=== PATIENT | male | born 1995 | race Caucasian/White ===

== ENCOUNTER 2019-08-06 03:50 | Emergency (ER) | payer SELFPAY ==
[2019-08-06 03:51] VITALS: BP 143/130; PULSE 159; RESP 25; TEMP 30.4; O2SAT 92; BMI 19.0
--- NOTE | 2019-08-06 03:54 | EKG12_ITS ---
Test Reason : RHYTHM CHANGE Blood Pressure : / mmHG Vent. Rate : 084 BPM Atrial Rate : 084 BPM P-R Int : 164 ms QRS Dur : 096 ms QT Int : 382 ms P-R-T Axes : 073 090 060 degrees QTc Int : 451 ms Normal sinus rhythm Rightward axis Borderline ECG Confirmed by BRITNEY WHITTINGTON, BERTIN ([id number]), art editor LONNY ESTRADA ([id number] on 08/10/2019 9:42:27 AM Referred By: NALLELY Confirmed By:XIOMY TAN MD
--- NOTE | 2019-08-06 03:55 | ED.DCSUM_ITS ---
History of Present Illness Chief Complaint: Overdose Informant: Patient, Friend, News Librarian Onset: Today Context: Sudden Onset Timing: Intermittent Quality: Respiratory arrest Current Severity: Mild Maximum Severity: Severe Worsened by: Snorted heroin Relieved by: Improved after intranasal and IV Narcan Associated Symptoms: Chills Narrative: Patient is a 23-year-old male who admits he has used heroin for some time. He recently resumed using heroin after he was in rehab. He denies history of hepatitis or HIV. Patient complains of chills. His clothes are wet. He requires repeat verbal and tactile stimulus to open his eyes and talk. History is limited. Prior similar symptoms: No Recent Illness/Hospitalization: No - Past Medical History (1) History of heroin use Status: Acute Past Medical History - Allergies and Home Meds Allergies/Adverse Reactions: Allergies No Known Allergies Allergy (Verified 08/06/19 03:59) Primary Care Physician: NOT,DEFINED [NON-STAFF] - Surgical History: no surgical history Lives: With Family - He lives with his mother Smoking Status: Current every day smoker Drugs: Heroin Review of Systems ROS: Unable to Obtain - Admitted secondary to drowsiness General: Reports: Chills. Denies: Fever, Malaise, Sweats Eyes: Denies: Visual changes - bilaterally, Blurred Vision - bilaterally ENT: Denies: Bilateral ear pain, Rhinorrhea, Sore throat Cardiovascular: Denies: Chest pain, Palpitations Respiratory: Denies: Dyspnea, Cough, Dyspnea on exertion Gastrointestinal: Reports: Nausea. Denies: Abdominal pain, Vomiting, Diarrhea, Melena Genitourinary: Denies: Dysuria, Hematuria Musculoskeletal: Reports: Myalgias. Denies: Arthralgias, Neck pain, Back pain, Swelling, Extremity Pain Skin: Denies: Rash, Wounds Neurological: Reports: Numbness. Denies: Headache, Weakness Psych: Reports: Anxiety Hematologic: Denies: Easy bruising, Easy bleeding Allergy: Denies: Uticaria, Swelling of the mouth Physical Exam Inital Vital Signs reviewed: Yes General: Well developed, - - Been. Patient is visibly shaking and has depressed level of consciousness Head: Normocephalic, Atraumatic Eyes: EOMI, - - Toes are 2 mm in size and slightly reactive.. Negative for: Pale conjunctiva, Scleral icterus ENT: No rhinorrhea, TM's clear, Dry mucous membranes Neck: Supple, Nontender, No lymphadenopathy, No JVD Cardiovascular: Regular rhythm, No murmurs, Normal S1, Normal S2, Tachycardia Respiratory: No distress, CTA bilaterally, Chest nontender Abdomen: Soft, Nontender, Nondistended, Normal bowel sounds, No masses Rectal: Deferred Back: Nontender Extremities: Nontender, No edema. Negative for: Tenderness, Edema Skin: No rash, No Trauma, Pallor. Negative for: Cyanosis, Diaphoresis, Jaundice Neurological: Cranial nerves II-XII grossly intact, Normal Strength. Negative for: Alert, Normal Sensation Psychological: Depressed Diagnostic/Tx/Re-eval - EKG Initial EKG Interpretation: Atrial Fibrillation - Atrial fibrillation with a ventricular rate of 152. QRS duration 98 ms which is prolonged. QT interval is 304 ms. There is no ossific ST-T wave changes which may represent artifact since patient has chills. [place] is to the right. Follow-up EKG Interpretation: Sinus Rhythm - Normal sinus rhythm with a ventricular rate of 84. DE interval is 164 ms. QS duration 96 ms. QT duration 382 ms. The axis to the right. - Medical Decision Making Patient does not appear well. He is pale tachycardic. He is somnolent. Narcan drip was ordered from pharmacy. Will obtain blood work for metabolic infectious etiology. Since he is tachycardic will obtain EKG to evaluate for ischemic changes. Tox screen was ordered as well as alcohol. I was informed that his temperature is 86. A temperature probe Dominguez was placed for accurate core temperature. Since core temperature is 92 ?F. Bear hugger was ordered. Will await tox sc reen prior to treating his A. fib with RVR. This may represent holiday heart syndrome versus illicit drug use. Entry at 1650. Tox screen was negative for opiates which would suggest he snorted fentanyl. Tox screen was also negative for cocaine and amphetamines. We will treat his A. fib with RVR with beta-brandyn. I was informed that his father has significant heart disease. Should not converted to normal sinus rhythm without intervention. Nurse informed me that she had not given the metoprolol prior to him converting. Patient was informed he needs to follow-up at [facility] counseling and drug rehabilitation. Since patient is now in a sinus rhythm without intervention will refer to cardiology. - Critical Care Time Critical care time (excluding procedures): 30-74 minutes, Discussing w/Patient &/or Family/Outdoor Advertising Leasing Agent, Discussing w/Consultants, Arranging Admission or Transfer ED Disposition - Plan for ED Patient: Disposition: Home or Assisted Living Diagnosis: Paroxysmal atrial fibrillation with rapid ventricular response, Overdose of opiate or related narcotic, Acute respiratory failure Instructions: Opiate Abuse, Atrial Fibrillation Referrals: NOT,DEFINED [NON-STAFF] - [facility] [STAFF PHYSICIAN] - As soon as possible Cassie De Leon MD [STAFF PHYSICIAN] - 5-7 Days
[2019-08-06] MEDS: Ondansetron 4 MG/2 ML Vial IV (03:56)
[2019-08-06 03:59] VITALS: BP 174/140; PULSE 188; RESP 29; TEMP 33.2
[2019-08-06] MEDS: 0.9% Normal Saline 1,000 ML 150 ML IV (04:26)
[2019-08-06 04:31] LABS: Absolute Lymphocyte Count 2.94 X10^3/uL (0.83-4.51); Absolute Neutrophil Count 10.9 X10^3/uL (2.0-7.7); Basophil# 0.05 X10^3/uL; Basophil% 0.3 % (0-1); Eosinophil# 0.23 X10^3/uL; Eosinophils% 1.5 % (0-5); Hematocrit 47.3 % (40-54); Hemoglobin 15.7 g/dL (13.0-16.5); Lymphocyte # 2.94 X10^3/ul (4.0); Lymphocyte % 19.6 % (19-41); Mean Corp Hgb Conc 33.2 g/dL (32-36); Mean Corpuscular Hgb 30.1 pg (27.0-32.0); Mean Corpuscular Volume 90.6 fL (80-94); Mean Platelet Vol. 9.4 fl (6.2-12.0); Monocyte# 0.65 X10^3/uL; Monocyte% 4.3 % (0-10); NRBC Flagged by Analyzer 0 % (0-5); Neutrophil # 10.91 X10^3/uL (2.7-7.7); Neutrophil % 72.9 % (47-70); Platelet Count 223 K/mm3 (150-450); RBC Distribution Width CV 12.2 % (11.6-14.6); RBC Distribution Width SD 40.1 fl (35.1-43.9); Red Blood Count 5.22 M/mm3 (4.6-6.2)
[2019-08-06 04:47] VITALS: BP 101/65; PULSE 105; RESP 15; O2SAT 98
[2019-08-06 04:49] LABS: Amphetamine Urine VISTA NEGATIVE (<1000 ng/mL); Barbiturate Urine VISTA NEGATIVE (< 200 ng/mL); Benzodiazepine Urine VISTA POSITIVE (< 200 ng/mL); Cocaine Urine VISTA NEGATIVE (< 300 ng/mL); Ecstacy Urine VISTA NEGATIVE (< 500 ng/mL); Methadone Urine VISTA NEGATIVE (< 300 ng/mL); PCP Urine VISTA NEGATIVE (< 25 ng/mL); THC Urine VISTA POSITIVE (< 50 ng/mL); Vista UDS pH Range 6
[2019-08-06 04:57] LABS: AST(SGOT) 44 U/L (15-37); Alanine Aminotransfer ALT/SGPT 31 U/L (16-61); Albumin, Serum 3.8 g/dL (3.2-5.0); Alkaline Phosphatase 71 U/L (45-117); Anion Gap 16 (5-15); BUN 12 mg/dL (7-18); BUN/Creat Ratio 8.4 RATIO (10-20); Bilirubin, Direct 0.05 mg/dL (0.00-0.30); Calcium,Total 8.1 mg/dL (8.5-10.1); Chloride 105 mmol/L (98-107); Creatinine, Serum 1.43 mg/dL (0.70-1.30); EST Glomerular Filtration Rate 64 mL/min (>60); Est Glom Filt Rate - Afr Amer 77 mL/min (>60); Estimated Creatinine Clearance 70.93 ml/min; Globulin 3.9 g/dL (2.2-4.2); Glucose 291 mg/dL (74-106); Potassium 3.6 mmol/L (3.5-5.1); Protein, Total 7.7 g/dL (6.4-8.2); Sodium Level 137 mmol/L (136-145)
[2019-08-06 05:08] LABS: Alcohol, Blood (Medical)-Serum < 3.0 mg/dL
[2019-08-06 05:22] VITALS: BP 93/71; PULSE 85; RESP 18; O2SAT 97
--- NOTE | 2019-08-06 05:30 | EKG12_ITS ---
Test Reason : DYSRHYTHMIA Blood Pressure : / mmHG Vent. Rate : 152 BPM Atrial Rate : 170 BPM P-R Int : 000 ms QRS Dur : 098 ms QT Int : 304 ms P-R-T Axes : 000 092 033 degrees QTc Int : 483 ms Atrial fibrillation with rapid ventricular response Rightward axis Nonspecific ST abnormality Abnormal ECG Confirmed by BRITNEY WHITTINGTON, BERTIN ([id number]), editorial cartoonist LONNY ESTRADA ([id number]) on 08/10/2019 9:43:05 AM Referred By: NALLELY Confirmed By:XIOMY TAN MD
--- NOTE | 2019-08-06 05:43 | ED.RN ---
NARCAN DRIP NOT STARTED PT BECAME AWAKE AND ALERT. LOPRESSOR 5 MG IVP NOT GIVEN RHYTHM CONVERTED TO NSR, HR 82
[2019-08-06 06:05] VITALS: BP 99/54; PULSE 82; RESP 13; O2SAT 97
== END 2019-08-06 06:07 | disposition home or self-care (01) ==
PROVIDERS: Emergency Provider Emergency Medicine
DX: I48.0 Paroxysmal atrial fibrillation (principal); J96.00 Acute respiratory failure, unspecified whether with hypoxia or hypercapnia; R68.0 Hypothermia, not associated with low environmental temperature; R00.0 Tachycardia, unspecified; T40.601A Poisoning by unspecified narcotics, accidental (unintentional), initial encounter; Y92.9 Unspecified place or not applicable; F41.9 Anxiety disorder, unspecified; F17.200 Nicotine dependence, unspecified, uncomplicated
CPT/HCPCS: 51702; 80048; 80076; 80307; 80320; 85025; 93005; 96361; 96374; 99285; J7030; A4216; G0480; J2310; J2405

== ENCOUNTER 2019-08-31 23:01 | Emergency (ER) | payer OTHER, SELFPAY ==
[2019-08-31 23:02] VITALS: BP 158/96; PULSE 118; RESP 16; TEMP 36.6; O2SAT 96; BMI 18.3
[2019-08-31 23:10] VITALS: PULSE 108; RESP 6; O2SAT 83
[2019-08-31 23:12] VITALS: PULSE 123; RESP 14; O2SAT 92
[2019-08-31] MEDS: Naloxone 2 MG/2 ML Syringe NS (23:19)
--- NOTE | 2019-08-31 23:23 | ED.RN ---
pt more alert with narcan. pt can now talk in full sentences without falling asleep.
--- NOTE | 2019-08-31 23:24 | ED.VIS.GEN ---
History of Present Illness Chief Complaint: Overdose Informant: Patient Narrative: Presents status post fentanyl overdose. He stated this evening prior to coming in he snorted fentanyl. Brought in by his family. He has history of narcotic abuse in the past. He said this is a relapse and he normally does not use frequently. Denies any other symptoms other than being tired. Was recently seen for overdose and treated in the emergency department. He was in atrial fibrillation at that time as well. He denies any complaints - Past Medical History (1) History of heroin use Status: Acute Past Medical History - Allergies and Home Meds Allergies/Adverse Reactions: Allergies No Known Allergies Allergy (Verified 08/31/19 23:04) Primary Care Physician: Care Physician,No Primary [Primary Care Provider] - Prior records reviewed: Yes Past Medical History: - - Viewed, atrial fibrillation Surgical History: no surgical history Lives: With Family Smoking Status: Former smoker Alcohol: None Drugs: None Review of Systems General: Denies: Chills, Fever, Sweats Eyes: Denies: Visual changes - bilaterally, Diplopia ENT: Denies: Rhinorrhea, Sore throat Cardiovascular: Denies: Chest pain, Palpitations Respiratory: Denies: Dyspnea, Cough, Dyspnea on exertion Gastrointestinal: Denies: Abdominal pain, Nausea, Vomiting, Diarrhea, Melena, Hematochezia Genitourinary: Denies: Dysuria, Hematuria, Frequency Musculoskeletal: Denies: Back pain, Extremity Pain Skin: Denies: Rash, Wounds Neurological: Denies: Headache, Weakness, Numbness Physical Exam Vital Signs/Narrative: Vital Signs Temp Pulse Resp BP Pulse Ox 08/31/19 23:12 123 H 14 92 08/31/19 23:10 108 H 6 L 83 08/31/19 23:02 98 F 118 H 16 158/96 H 96 General: Well nourished, Well developed, - - Patient is somnolent and tired. Negative for: No Acute Distress Head: Normocephalic, Atraumatic Eyes: EOMI, - - Pupils 1 mm and pinpoint. Negative for: Perrl ENT: Moist mucous membranes, No rhinorrhea Neck: Supple, Nontender Cardiovascular: Regular rate, Regular rhythm, No murmurs Respiratory: No distress, CTA bilaterally, Chest nontender Abdomen: Soft, Nontender, Nondistended, Normal bowel sounds Back: Nontender, Normal Inspection Extremities: Nontender, No edema Skin: Normal color, No rash Neurological: Alert, Oriented x3, Cranial nerves II-XII grossly intact, Normal Strength, Normal Sensation Psychological: Normal affect, Normal Mood Diagnostic/Tx/Re-eval - Medical Decision Making Patient given intranasal Narcan due to the fact that he is somnolent and tired he can barely keep his eyes open. This helped. He was monitored in the emergency department. He was also given 1 dose of IV Narcan which really woke him up. Family is with him. They can watch him. He was monitored for an hour and a half. Do not feel he needs lab work. He will follow-up with 180. Also to refrain from narcotics. Also given clindamycin lotion as he has a small pustule on his right inner nares that he showed me ED Disposition - Plan for ED Patient: Disposition: Home or Assisted Living Diagnosis: Accidental fentanyl overdose Instructions: OVERDOSE, Accidental (Adult), OVERDOSE, Opiate Prescriptions: Clindamycin Phosphate [Cleocin T] 60 ml TP TID #1 lotion Prescription Printed Referrals: Care Physician,No Primary [Primary Care Provider] - [facility] [STAFF PHYSICIAN] -
[2019-08-31 23:37] VITALS: BP 128/72; PULSE 787; RESP 10; O2SAT 94
[2019-08-31] MEDS: Ondansetron 4 MG/2 ML Vial IV (23:44)
[2019-08-31] MEDS: Naloxone 2 MG/2 ML Syringe IV (23:44)
[2019-09-01 00:02] VITALS: BP 132/64; PULSE 68; RESP 15; O2SAT 100
[2019-09-01 00:37] VITALS: BP 116/64; PULSE 64; RESP 16; O2SAT 100
== END 2019-09-01 00:41 | disposition home or self-care (01) ==
PROVIDERS: Emergency Provider Emergency Medicine
DX: T40.4X1A Poisoning by other synthetic narcotics, accidental (unintentional), initial encounter (principal); R40.0 Somnolence; Y92.9 Unspecified place or not applicable; L08.9 Local infection of the skin and subcutaneous tissue, unspecified; Z87.891 Personal history of nicotine dependence
CPT/HCPCS: 96374; 96375; 99282; A4216; J2405